=== PATIENT | male | born 1965 | race Caucasian/White ===

== ENCOUNTER 2022-01-31 08:13 | Outpatient (CLI) | payer OTHER, SELFPAY ==
[2022-01-31 16:00] LABS: Albumin* 4.2 g/dL (3.3-5.0)
[2022-01-31 16:01] LABS: Chloride* 106 mmol/L (96-114); Potassium* 4.6 mmol/L (3.6-5.1); Sodium* 141 mmol/L (135-149)
[2022-01-31 16:03] LABS: Aspartate Amino Transferase* 31 U/L (12-35); Bilirubin Total* 0.5 mg/dL (0.1-1.5); Carbon Dioxide* 27 mmol/L (20-32); Cholesterol* 188 mg/dL (90-199); Creatinine* 0.9 mg/dL (0.5-1.5); Estimated Glomerular Filt Rate 100 ml/min; Total Protein* 7.6 g/dL (6.0-8.3)
[2022-01-31 16:04] LABS: Alanine Aminotransferase* 27 U/L (4-50); Alkaline Phosphatase* 119 U/L (40-150); Blood Urea Nitrogen* 17 mg/dL (7-30); Calcium* 8.9 mg/dL (8.4-10.6); Glucose* 123 mg/dL (60-115); Triglycerides* 148 mg/dL (40-149)
[2022-01-31 16:05] LABS: HDL Cholesterol* 47 mg/dL (>=40); LDL Cholesterol Calculated 111 mg/dL (<100)
[2022-01-31 16:35] LABS: PSA Screen* 1.38 ng/mL (0.10-4.00)
== END 2022-01-31 08:14 | disposition home or self-care (01) ==
PROVIDERS: PCP Emergency Medicine; Visit Provider Emergency Medicine
DX: Z00.00 Encounter for general adult medical examination without abnormal findings (principal); E78.5 Hyperlipidemia, unspecified; I10 Essential (primary) hypertension; R73.01 Impaired fasting glucose; R73.03 Prediabetes; R63.5 Abnormal weight gain
CPT/HCPCS: 80053; 80061; 84153; 84443

== ENCOUNTER 2022-04-03 13:57 | Outpatient (CLI) | payer OTHER, SELFPAY ==
[2022-04-03 21:41] LABS: Albumin* 4.2 g/dL (3.3-5.0); Chloride* 106 mmol/L (96-114)
[2022-04-03 21:42] LABS: Potassium* 4.2 mmol/L (3.6-5.1); Sodium* 139 mmol/L (135-149)
[2022-04-03 21:44] LABS: Alkaline Phosphatase* 92 U/L (40-150); Aspartate Amino Transferase* 30 U/L (12-35); Bilirubin Total* 0.7 mg/dL (0.1-1.5); Blood Urea Nitrogen* 22 mg/dL (7-30); Carbon Dioxide* 26 mmol/L (20-32); Cholesterol* 155 mg/dL (90-199); Creatinine* 0.9 mg/dL (0.5-1.5); Estimated Glomerular Filt Rate 99 ml/min; Glucose* 107 mg/dL (60-115)
[2022-04-03 21:45] LABS: Alanine Aminotransferase* 25 U/L (4-50); Calcium* 9.3 mg/dL (8.4-10.6); HDL Cholesterol* 37 mg/dL (>=40); LDL Cholesterol Calculated 82 mg/dL (<100); Triglycerides* 180 mg/dL (40-149)
== END 2022-04-03 13:58 | disposition home or self-care (01) ==
LOC: LKVREF 13:58
PROVIDERS: PCP Emergency Medicine; Visit Provider Emergency Medicine
DX: R10.9 Unspecified abdominal pain (principal); E78.5 Hyperlipidemia, unspecified; E55.9 Vitamin D deficiency, unspecified
CPT/HCPCS: 80053; 80061

== ENCOUNTER 2022-04-06 13:11 | Outpatient (CLI) | payer OTHER, SELFPAY ==
--- NOTE | 2022-04-06 14:00 | CRLHL7_ITS ---
For Patients: As a result of the Century Cures Act, medical imaging exams and procedure reports are released immediately into your electronic medical record. You may view this report before your referring provider. If you have questions, please contact your health care provider. Indication: Right Mid abd pain, colectomy for diverticulitis and adhesions to bladder August 2021. Technique: Postcontrast CT abdomen and pelvis. Oral water. 116 cc Isovue 370 intravenous contrast. Please note that all CT scans at this facility use dose modulation, iterative reconstruction, and/or weight-based dosing when appropriate to reduce radiation dose to as low as reasonably achievable. Comparison: 07/13/2021 Findings: Minimal atelectasis/scarring within the right middle lobe. No pleural effusion. Incidental calcified granulomas within the liver. No suspicious intrahepatic mass. The gallbladder is surgically absent. A tiny hiatal hernia is present. Coarse splenic calcifications again noted. No splenomegaly. The adrenal glands are normal. No hydronephrosis or renal stone. Stable exophytic cyst arising from the posterior left kidney lower pole measuring 1.6 cm. Mild atrophy of the pancreas. Decreased inflammation within the mid lower abdomen with residual curvilinear densities between the bladder and colon. No fluid collection or fistula. No bladder wall thickening or air in the bladder. Postop changes of partial colectomy with primary anastomosis. Colonic diverticulosis is present without acute diverticulitis. Normal appendix. No bowel obstruction or free air. No free fluid. No adenopathy. Stable umbilical hernia containing fat measuring 2.4 cm. Postop changes of bilateral inguinal hernia repair. No fracture. Impression: Residual scarring/chronic inflammation above the bladder dome. No evidence of fistula or recurrent diverticulitis. No bladder wall thickening or evidence of cystitis. Intact anastomosis regarding the partial colectomy. No bowel obstruction. Please note that all CT scans at this facility use dose modulation, iterative reconstruction, and/or weight-based dosing when appropriate to reduce radiation dose to as low as reasonably achievable. Dictated by Jarad Moncada MD @ 04/06/2022 3:56:51 PM (Electronically Signed)
== END 2022-04-06 13:12 | disposition home or self-care (01) ==
LOC: CT 13:12
PROVIDERS: PCP Emergency Medicine; Visit Provider Emergency Medicine
DX: R10.9 Unspecified abdominal pain (principal)
CPT/HCPCS: 74177; Q9967

== ENCOUNTER 2023-02-06 08:30 | Outpatient (CLI) | payer OTHER, SELFPAY | END 2023-02-06 08:31 | disposition home or self-care (01) | LOC: NFLDREF 02-09 08:04 | PROVIDERS: PCP Emergency Medicine; Referring Provider Emergency Medicine; Visit Provider Emergency Medicine | DX: Z00.00 Encounter for general adult medical examination without abnormal findings (principal); E78.1 Pure hyperglyceridemia; R73.03 Prediabetes; Z12.5 Encounter for screening for malignant neoplasm of prostate | CPT/HCPCS: 80053; 80061; 84153 ==

== ENCOUNTER 2024-03-04 07:51 | Outpatient (CLI) | payer OTHER, SELFPAY | END 2024-03-04 07:52 | disposition home or self-care (01) | LOC: NFLDREF 03-05 10:55 | PROVIDERS: PCP Emergency Medicine; Referring Provider Emergency Medicine; Visit Provider Emergency Medicine | DX: R73.03 Prediabetes (principal); E78.5 Hyperlipidemia, unspecified; Z12.5 Encounter for screening for malignant neoplasm of prostate | CPT/HCPCS: 80048; 80061; G0103 ==

== ENCOUNTER 2024-03-10 09:01 | Outpatient (CLI) | payer OTHER, SELFPAY | END 2024-03-10 09:02 | disposition home or self-care (01) | PROVIDERS: PCP Emergency Medicine; Visit Provider Emergency Medicine | DX: R53.83 Other fatigue (principal) | CPT/HCPCS: 84403; 84443 ==

== ENCOUNTER 2024-03-31 12:49 | Outpatient (CLI) | payer OTHER, SELFPAY ==
[2024-03-31 14:06] VITALS: BP 140/90; PULSE 87; RESP 16
--- NOTE | 2024-03-31 15:58 | W.PM.STED ---
Stress Test Note Date Date of test: 03/31/24 Providers Primary care provider: Jina Schroeder Stress test physician: Caesar Mills Stress Test Note Stress test ordered: Stress Echo Indication for test: Chest pain Results discussion: This very nice gentleman presents for the above test within indication of chest pain, discussion of the risks benefits and side effects are undertaken and is accepting of these. Pretest EKG shows normal sinus rhythm with a ventricular rate of 59 blood pressure 100/62. No acute ST wave changes are noted, patient is exercised following the [employer] protocol for 12 minutes, with the metabolic equivalent of 12.1 Mets, his maximum heart rate was 157 which is 115% of the maximum. He had no significant symptoms during this test, test is terminated because of fulfillment of protocol and overall fatigue. Conditioning was felt to be excellent. Review of the tracing showed no ST wave changes suggestive of ischemia. There are no dysrhythmias Impression: Negative electrographic portion of stress test, conditioning felt to be excellent Follow up suggested: Await echo images clinical correlation with these will be needed, but patient did well, there is no complications, will be discharged from this facility.
== END 2024-03-31 14:00 | disposition home or self-care (01) ==
LOC: STRESS 12:50
PROVIDERS: PCP Emergency Medicine; Visit Provider Emergency Medicine
DX: R07.9 Chest pain, unspecified (principal)
CPT/HCPCS: 93016; 93325; 93351

== ENCOUNTER 2024-11-19 09:18 | Outpatient (CLI) | payer OTHER, SELFPAY | END 2024-11-19 09:19 | disposition home or self-care (01) | PROVIDERS: PCP Emergency Medicine; Visit Provider Emergency Medicine | DX: R10.11 Right upper quadrant pain (principal); I10 Essential (primary) hypertension; R82.90 Unspecified abnormal findings in urine | CPT/HCPCS: 80048; 80076; 83690; 87086 ==

== ENCOUNTER 2024-12-31 09:07 | Outpatient (CLI) | payer OTHER, SELFPAY | END 2024-12-31 09:08 | disposition home or self-care (01) | PROVIDERS: PCP Emergency Medicine; Visit Provider Emergency Medicine | DX: R20.2 Paresthesia of skin (principal) | CPT/HCPCS: 82607; 84443 ==